=== PATIENT | male | born 1970 | race Caucasian/White ===

== ENCOUNTER 2016-11-06 13:39 | Emergency (ER) | payer OTHER ==
[2016-11-06 13:51] VITALS: BP 111/64; PULSE 82; TEMP 97.4; BMI 19.6
--- NOTE | 2016-11-06 13:56 | EDPRACDOC ---
- General Information Stated Complaint: RASH Time Seen by Provider: 11/06/16 13:48 Home Medications: Home Medications Hydroxyzine Pamoate [Vistaril] 25 mg PO Q6 PRN #20 capsule 11/06/16 Permethrin 60 gm TP DAILY #60 cream..g. 11/06/16 Allergies/Adverse Reactions: Allergies Allergy/AdvReac Type Severity Reaction Status Date / Time No Known Allergies Allergy Verified 11/06/16 13:52 - History of Present Illness Onset: 2 months HPI: Pt states he got a couch from a friend that had bed bugs. Pt got house and couch cleaned but didn't treat himself. C/o rash to diffuse body in patches x 2 months. C/o itching. Denies fever, cp, sob, abd pain, n/v, changes in bowel or bladder, throat swelling, difficult swallowing. Rash Location: Reports: Generalized Quality: Reports: Pruritic, Red Known Exposure To: Reports: Other (bed bugs) Relevant History of: Reports: None Irritability: None Pain Severity: None Associated Signs and Symptoms: Reports: None ED Past Medical History - History Reviewed Yes Nurses notes reviewed and agree except as marked - Social Medical History Smoking Status: Heavy tobacco smoker (5 or more cigarettes/day or daily pipe/ cigar) ETOH: Abuse Substance Abuse: None EDM Review of Systems - Review of Systems Constitutional: No Symptoms Reported. negative: Fever, Chills, Weakness, Fatigue, Loss of Appetite Ears: No Symptoms Reported. negative: Pain, Hearing Loss, Drainage, Ear Pulling Throat: No Symptoms Reported. negative: Pain, Swelling Nose: No Symptoms Reported. negative: Congestion, Bleeding, Discharge, Injection, Swelling, Deformity, Ecchymosis, Tender, Abrasion, Laceration Mouth: No Symptoms Reported. negative: Pain, Drooling Respiratory: No Symptoms Reported. negative: Cough, Brassy Cough, Barky Cough, Shortness of Breath, Wheezing, Hemoptysis Cardiovascular: No Symptoms Reported. negative: Chest Pain, Palpitations, Syncope, Edema, Orthopnea, PND, Skin Mottling, Cyanosis Gastrointestinal: No Symptoms Reported. negative: Pain, Constipation, Nausea, Vomiting, Diarrhea, Melena, Formula Intolerance Genitourinary: No Symptoms Reported. negative: Dysuria, Hematuria, Frequency, Discharge, Bleeding, Testicular Pain, Neurological: No Symptoms Reported. negative: Headache, Dizziness, Seizure, Numbness, Weakness, Speech Difficulty, Gait Difficulty Musculoskeletal: No Symptoms Reported. negative: Neck, Chestwall, Ribs, Back, Shoulder, Arm, Elbow, Forearm, Wrist, Hand, Pelvis, Hip, Femur, Knee, Leg, Ankle , Foot Integumentary: Itching, Rash Allergic/Immunologic: Itching Hematologic: No Symptoms Reported. negative: Lymphadenopathy, Easy Bruising, Easy Bleeding Psychiatric: No Symptoms Reported. negative: Anxiety, Depression, Hallucinations, Insomnia, Suicidal - Physical Exam Constitutional: Alert (Awake), No apparent distress Oriented to: Time, Person, Place Last recorded Vital Signs: Last Vital Signs Temp 97.4 F L 11/06/16 13:50 Pulse 82 11/06/16 13:50 Resp 20 11/06/16 13:50 BP 111/64 11/06/16 13:50 Pulse Ox 99 11/06/16 13:50 Oxygen Pulse Oxygen Saturation 99 O2 Device Room Air Oxygen Flow Rate Fraction of Inspired Oxygen ( FIO2) - HEENT Head: Normal ( normocephalic) Eye Exam: Normal (PERRL, EOMI, Sclera white) Oropharynx: Normal (Pharynx:Moist without exudate,Gums-no swelling) Nose: No Symptoms Reported (septum midline) Neck: Normal (FROM, trachea at midline) - Respiratory/Cardiovascular Respiratory: Normal - CTA (BBS clear to auscultation without adventitious sounds ) Cardiovascular: Normal (RRR without murmur, gallop or rub) - GI Auscultation: Normal (NABS) Palpation: Normal (Soft,No rebound or guarding, non distended) Tenderness: Non tender - Musculoskeletal Back: Normal (Non-Tender) Extremities: Normal (Normal tone, Pulses 2+ No cyanosis or edema, FROM) - Integumentary Skin: Rash Lymphatics: Normal (no adenopathy) - Neurologic Memory Impaired: Normal Motor Function: Normal (Normal tone, Pulses 2+ No cyanosis or edema, FROM) Mood Description: Normal Perception: Normal ED Rash Exam - Physical Exam Constitutional: Alert - HEENT Eye Exam: Normal. negative: Pale Conjunctiva, Xanthelasma, Scleral Icterus, Conjunctival Injection, Chemosis, Edema, Other Tongue: Normal. negative: Vesicles, Ulcers, [place] Tongue, White [place] Tongue, Other Palate: Normal. negative: Soft, Hard, Petechiae, Vesicles, Ulcers, Unilateral Swelling, Uvular deviation, Tender, Red, Pointing, Draining, Other Buccal Mucosa: Normal. negative: Vesicles, Petechiae, White Spots, Other Oropharynx: Normal. negative: Membranes Dry, Red, Exudate, White Plaques, Tonsillar Hypertrophy, Other Mucos Membranes: Normal. negative: Pallor, Cyanosis, Membranes Dry, H, Other Neck: Normal. negative: Meningeal Signs, Thyromegaly, Step off, Tender, Limited ROM, Crepitus, Denies Pain, Tracheal Deviation, Edema, Other - Respiratory/Cardiovascular Respiratory: Normal - CTA. negative: Diminished, Wheezes, Rales, Rhonchi, Stridor, Accessory Muscle Use, Retractions, Tachypnea, Other Cardiovascular/Chest: Normal. negative: Bradycardia, Tachycardia, Diastolic murmur, Systolic murmur, Gallop/S3, Gallop/S4, Irregular, B, JVD, Other - GI Auscultation: Normal Palpation: Normal Tenderness: Non tender. negative: Diffuse, Mild, Moderate, Severe, Rebound, Guarding, Other - Intugementary Skin: Rash Rash Location: Generalized Skin Lesion: Macular, Maculopapular, Patch Skin Color: Red Lymphatics: Normal - Differential Diagnosis Atopic dermatitis, Psoriasis, Scabies, Viral exanthem Decision Time to Discharge: 13:57 - Departure Disposition: Home Condition: Good Final Diagnosis: Scabies Instructions: Scabies (ED) Education/Counseling Given To: Patient Education/Counseling Given Regarding: Diagnosis, Treatment, Follow Up Referrals: None,No Provider [Primary Care Provider] - One Week Shen Vinson MD [Staff Physician] - One Week Prescriptions: New Hydroxyzine Pamoate [Vistaril] 25 mg PO Q6 PRN #20 capsule PRN Reason: Itching Permethrin 60 gm TP DAILY #60 cream..g. Additional Instructions: Return for worse or different symptoms.
== END 2016-11-06 14:10 | disposition home or self-care (01) ==
LOC: EDMC 13:39
DX: B86 Scabies (principal)
CPT/HCPCS: 99282